=== PATIENT | male | born 1960 | race Caucasian/White ===

== ENCOUNTER 2018-07-20 15:09 | Outpatient (CLI) | payer MEDICARE ==
--- NOTE | 2018-07-21 08:31 | Ultrasound Report ---
Reason: PAIN OF TOES OF BILATERAL FEET Procedure Date: 07/20/2018 Accession Number: [id number] / [id number] Procedure: US - Duplex Lwr Ext Arterial Bilat CPT Code: FULL RESULT: EXAM: Bilateral Lower Extremity Arterial Doppler Ultrasound EXAM DATE: 07/20/2018 03:43 PM. CLINICAL HISTORY: Pain of toes of bilateral feet. COMPARISON: None. TECHNIQUE: Real-time sonographic vascular imaging was performed by the merchandising director, utilizing color-flow, Doppler flow, and spectral analysis. Multiple customer service representative teller static images were saved for review. FINDINGS: Mild atherosclerotic plaque in the trifurcation vessels right greater than left. No evidence of significant stenosis of either lower extremity by velocity measurement. Triphasic waveforms to the inflow vessels. Right Leg: NEWCOMER HOSTESS: PSV 78 cm/sec. Triphasic waveform. PSFA: PSV 81 cm/sec. Triphasic waveform. MSFA: PSV 70 cm/sec. Triphasic waveform. DSFA: PSV 52 cm/sec. Triphasic waveform. POP: PSV 44 cm/sec. Biphasic waveform. ESTELA: PSV 45 cm/sec. Biphasic waveform. BINDER OPERATOR: PSV 66 cm/sec. Triphasic waveform. PER: PSV 37 cm/sec. Biphasic waveform. DPA: PSV 36 cm/sec. Triphasic waveform. Left Leg: NEWCOMER HOSTESS: PSV 83 cm/sec. Triphasic waveform. PSFA: PSV 94 cm/sec. Triphasic waveform. MSFA: PSV 83 cm/sec. Triphasic waveform. DSFA: PSV 55 cm/sec. Triphasic waveform. POP: PSV 45 cm/sec. Triphasic waveform. ESTELA: PSV 50 cm/sec. Triphasic waveform. BINDER OPERATOR: PSV 64 cm/sec. Triphasic waveform. PER: PSV 34 cm/sec. Triphasic waveform. DPA: PSV 40 cm/sec. Biphasic waveform. IMPRESSION: No evidence of significant stenosis. RADIA
== END 2018-07-20 15:10 | disposition home or self-care (01) ==
LOC: DI 15:09
PROVIDERS: ATTEND Nurse Practitioner Family
DX: M79.674 Pain in right toe(s) (principal)
CPT/HCPCS: 93925

== ENCOUNTER 2020-06-06 14:43 | Outpatient (CLI) | payer MEDICARE, OTHER ==
--- NOTE | 2020-06-06 15:33 | XRAY Report ---
PROCEDURE: Hand 3 View RT INDICATIONS: PAIN IN FINGER OF RT HAND TECHNIQUE: 3 views of the hand(s) acquired. COMPARISON: None FINDINGS: Bones: No fractures or dislocations. Radiolucency involving dorsal and ulnar aspect of second proxim al phalangeal head, lumbar and radial aspect of third proximal phalangeal head and dorsal aspect of f ourth middle phalangeal base are seen which may represent subtle erosion secondary to inflammatory ar thropathy. No suspicious bony lesions. Soft tissues: No suspicious soft tissue calcifications. IMPRESSION: No right hand fracture or dislocation. Subtle radiolucencies in above mentioned phalanges which may r epresent nonspecific subcortical cyst versus erosion secondary to inflammatory arthropathy. Reviewed by: Colin Castañeda MD on 06/06/2020 3:32 PM PST Approved by: Colin Castañeda MD on 06/06/2020 3:32 PM PST Station ID: [id number]
== END 2020-06-06 14:44 | disposition home or self-care (01) ==
LOC: DI.S 14:43
PROVIDERS: ATTEND Family Medicine
DX: M79.644 Pain in right finger(s) (principal)

== ENCOUNTER 2021-09-03 12:07 | Outpatient (CLI) | payer MEDICARE, OTHER ==
--- NOTE | 2021-09-04 10:55 | XRAY Report ---
PROCEDURE: Thoracic Spine 2 View INDICATIONS: LOW BACK PAIN TECHNIQUE: 3 views of the thoracic spine were acquired. COMPARISON: None. FINDINGS: Bones: No fractures or dislocations. No suspicious bony lesions. There is mild degenerative disc di sease at T9-T10. Prominent lateral osteophyte T9-T10. 12 pairs of ribs are noted, and appear intact w here visualized. Soft tissues: No paravertebral stripe thickening. IMPRESSION: Mild degenerative disc disease in thoracic spine appear Reviewed by: Donna Phillips MD on 09/04/2021 10:54 AM PDT Approved by: Donna Phillips MD on 09/04/2021 10:54 AM PDT Station ID: [id number]
--- NOTE | 2021-09-04 10:56 | XRAY Report ---
PROCEDURE: Lumbar Spine 2 View INDICATIONS: LOW BACK PAIN TECHNIQUE: 2 views of the lumbar spine were acquired. COMPARISON: None. FINDINGS: Bones: 5 [id number] vertebrae are present. There is normal bony alignment. No vertebral body compression fractures. No suspicious bony lesions. There is mild degenerative disease at L4-L5 and L5-S1. Moderate facet arthropathy at L4-L5 and L5-S1. Soft tissues: Overlying bowel gas pattern is normal. No suspicious soft tissue calcifications. IMPRESSION: 1. Degenerative disc disease and moderate facet arthropathy at L4-L5 and L5-S1. Reviewed by: Donna Phillips MD on 09/04/2021 10:55 AM PDT Approved by: Donna Phillips MD on 09/04/2021 10:55 AM PDT Station ID: [id number]
== END 2021-09-03 12:08 | disposition home or self-care (01) ==
LOC: DI.S 12:07
PROVIDERS: ATTEND Nurse Practitioner Family
DX: M47.816 Spondylosis without myelopathy or radiculopathy, lumbar region (principal); M51.36 Other intervertebral disc degeneration, lumbar region; M47.817 Spondylosis without myelopathy or radiculopathy, lumbosacral region; M51.37 Other intervertebral disc degeneration, lumbosacral region; M47.814 Spondylosis without myelopathy or radiculopathy, thoracic region; M51.34 Other intervertebral disc degeneration, thoracic region

== ENCOUNTER 2021-09-11 15:28 | Outpatient (CLI) | payer MEDICARE, OTHER ==
[2021-09-11 20:01] LABS: BASOPHILS # (AUTO) 0.1 10^3/uL (0.0-0.1); BASOPHILS % (AUTO) 0.6 %; EOSINOPHILS # (AUTO) 0.1 10^3/uL (0.0-0.7); EOSINOPHILS % (AUTO) 1.1 %; HGB - HEMOGLOBIN 15.2 g/dL (14.0-18.0); LYMPHOCYTES # (AUTO) 2.1 10^3/uL (1.5-3.5); LYMPHOCYTES % (AUTO) 24.9 %; MEAN CORPUSCULAR HEMOGLOBIN 29.7 pg (27.0-31.0); MEAN CORPUSCULAR HGB CONC 33.8 g/dL (32.0-36.0); MEAN CORPUSCULAR VOLUME 88.1 fL (80.0-94.0); MEAN PLATELET VOLUME 10.9 fL (7.4-11.4); MONOCYTES # (AUTO) 0.8 10^3/uL (0.0-1.0); MONOCYTES % (AUTO) 9.8 %; NEUTROPHILS # (AUTO) 5.3 10^3/uL (1.5-6.6); NEUTROPHILS % (AUTO) 63.4 %; PLT - PLATELET COUNT 260 10^3/uL (130-450); RED BLOOD COUNT 5.11 10^6/uL (4.70-6.10); RED CELL DISTRIBUTION WIDTH 13.1 % (12.0-15.0); WHITE BLOOD COUNT 8.4 x10^3/uL (4.8-10.8)
[2021-09-11 20:14] LABS: ALBUMIN 4.3 g/dL (3.2-5.5); ALBUMIN/GLOBULIN RATIO 1.7 (1.0-2.2); ALKALINE PHOSPHATASE 49 IU/L (42-121); ALT ALANINE AMINOTRANSFERASE 25 IU/L (10-60); AST ASPARTATE AMINOTRANSFERASE 18 IU/L (10-42); BILIRUBIN,DIRECT 0.1 mg/dL (0.1-0.5); BILIRUBIN,INDIRECT 0.5 mg/dL; BILIRUBIN,TOTAL 0.6 mg/dL (0.2-1.0); BUN - BLOOD UREA NITROGEN 13 mg/dL (6-20); CALCIUM 8.9 mg/dL (8.5-10.3); CARBON DIOXIDE - CO2 25 mmol/L (21-32); CHLORIDE 102 mmol/L (101-111); CREATININE 0.9 mg/dL (0.6-1.2); GFR - MDRD 85 (>89); GLUCOSE 92 mg/dL (70-100); SODIUM 137 mmol/L (135-145); TOTAL PROTEIN 6.9 g/dL (6.7-8.2)
[2021-09-11 20:28] LABS: CRP - C-REACTIVE PROTEIN < 1.0 mg/dL (0-1.0)
[2021-09-13 03:09] LABS: HCV AB <0.1 s/co ratio (0.0-0.9)
== END 2021-09-11 15:29 | disposition home or self-care (01) ==
LOC: LAB.S 15:28
PROVIDERS: ATTEND Nurse Practitioner Family
DX: K50.90 Crohn's disease, unspecified, without complications (principal); R17 Unspecified jaundice; E53.9 Vitamin B deficiency, unspecified; Z13.220 Encounter for screening for lipoid disorders; Z11.59 Encounter for screening for other viral diseases; Z13.1 Encounter for screening for diabetes mellitus
CPT/HCPCS: 36415; 80053; 80061; 82247; 82248; 82607; 83721; 85025; 85651; 86140; 86803; 87522